=== PATIENT | female | born 1960 | race African-American/Black ===

== ENCOUNTER 2018-08-01 09:10 | Emergency (ER) | payer OTHER ==
[2018-08-01 09:22] VITALS: TEMP 98.9; BMI 43.2
--- NOTE | 2018-08-01 10:23 | PDOC ---
History of Present Illness - General Chief Complaint: Blood Pressure Problem Stated Complaint: HIGH BLOOD PRESSURE Time Seen by Provider: 08/01/18 10:11 History Source: Patient Exam Limitations: No Limitations - History of Present Illness Initial Comments: CHIEF COMPLAINT: 58 y/o afebrile female here for a BP check. HISTORY OF PRESENT ILLNESS: The patient states yesterday, while waiting for a pain medicine injection, a person in the waiting room seized and collapsed on the floor. She was taken in after that and her blood pressure was 190 over "something". She states she was very worked up and has never had high blood pressure in the past. She was told to f/u in an ER today for a repeat BP check. She denies headache, changes in vision and all other symptoms. Vital signs on arrival are notable for BP of 157/70. REVIEW OF SYSTEMS: GENERAL/CONSTITUTIONAL: No fever/chills. No weakness. No weight change. HEAD, EYES, EARS, NOSE AND THROAT: No change in vision. No ear pain or discharge. No sore throat. CARDIOVASCULAR: No chest pain or shortness of breath. RESPIRATORY: No cough, wheezing, or hemoptysis. GASTROINTESTINAL: No nausea, vomiting, diarrhea. GENITOURINARY: No dysuria, frequency, or change in urination. MUSCULOSKELETAL: No joint or muscle swelling or pain. No neck or back pain. SKIN: No rash or easy bruising. NEUROLOGIC: No headache, vertigo, loss of consciousness, or loss of sensation. PHYSICAL EXAM: GENERAL: The patient is awake, alert, and fully oriented, in no acute distress. She is well appearing and ambulatory. HEAD: Normal with no signs of trauma. ENT: Pupils equal, round and reactive to light, extraocular movements intact, sclera anicteric, conjunctiva clear.. NEUROLOGICAL: Normal speech, normal gait. CN II-XII grossly intact. PSYCH: Normal mood, normal affect. SKIN: Warm, dry, normal turgor, no rashes or lesions noted. Past History - Past Medical History Allergies/Adverse Reactions: Allergies Allergy/AdvReac Type Severity Reaction Status Date / Time No Known Allergies Allergy Verified 08/01/18 09:22 Home Medications: Ambulatory Orders NK [No Known Home Medication] 08/01/18 Cancer: Yes (STAGE 3 BREAST CANCER) COPD: No Other medical history: CHRNIC LOWER BACK PAIN - Suicide/Smoking/Psychosocial Hx Smoking Status: No Smoking History: Never smoked Number of Cigarettes Smoked Daily: 0 Hx Alcohol Use: No *Physical Exam - Vital Signs Last Vital Signs Temp Pulse Resp BP Pulse Ox 98.9 F 72 18 157/70 88 L 08/01/18 09:15 08/01/18 09:15 08/01/18 09:15 08/01/18 09:15 08/01/18 09:15 Medical Decision Making - Medical Decision Making A/P: 58 y/o female here for BP check. In triage it was 157/70. In the patient room it's 122/69. Patient has no complaints. Reassured her. Suggested she f/u with her PCP this week and return to the ER if she develops and concerning symptoms such as headache or blurry vision. The patient verbalizes understanding of all instructions, has no further questions and is awaiting discharge. *DC/Admit/Observation/Transfer Diagnosis at time of Disposition: Blood pressure check - Discharge Dispostion Disposition: HOME Condition at time of disposition: Good - Referrals Referrals: Negar Cuevas [Primary Care Provider] - 3 days - Patient Instructions Additional Instructions: Discharge Instructions: -Your blood pressure in the ER was 122/69. -Please follow up with your doctor next week -Return to the ER with any worsening or concerning symptoms - Post Discharge Activity
[2018-08-01 10:24] VITALS: BP 122/69; PULSE 68
== END 2018-08-01 10:26 | disposition home or self-care (01) ==
LOC: JERFT 09:10
DX: Z01.30 Encounter for examination of blood pressure without abnormal findings (principal); Z85.3 Personal history of malignant neoplasm of breast; M54.5 Low back pain; G89.29 Other chronic pain
CPT/HCPCS: 99281-25

== ENCOUNTER 2019-09-11 02:36 | Emergency (ER) | payer OTHER ==
[2019-09-11 02:48] VITALS: BP 134/79; PULSE 83; TEMP 98.3; BMI 42.3
--- NOTE | 2019-09-11 03:06 | PDOC ---
History of Present Illness - General Chief Complaint: Cold Symptoms Stated Complaint: SORE THROAT Time Seen by Provider: 09/11/19 02:38 - History of Present Illness Initial Comments: 09/11/19 03:17 This 59-year-old woman with a history of breast cancer (in remission) and s/p gastric sleeve resection (2018) presents with a 2-day history of sore throat, nonproductive cough, bilateral ear discomfort and subjective fever. Patient was visiting family in [place] until 2 days ago; her 6-year-old nephew there was currently being treated for strep pharyngitis. Patient returned home yesterday by airplane. Patient does not have history of strep as an adult. No history of asthma or other chronic respiratory illness. No nausea/vomiting/ diarrhea currently. On no daily medications No known allergies Non-smoker; denies daily alcohol/other recreational drugs Past History - Past Medical History Allergies/Adverse Reactions: Allergies Allergy/AdvReac Type Severity Reaction Status Date / Time No Known Allergies Allergy Verified 08/01/18 09:22 Home Medications: Ambulatory Orders Azithromycin 250 mg PO DAILY #4 tablet 09/11/19 Cancer: Yes (STAGE 3 BREAST CANCER) COPD: No - Psycho Social/Smoking Cessation Hx Smoking Status: No Smoking History: Never smoked Number of Cigarettes Smoked Daily: 0 Hx Alcohol Use: No Review of Systems - Review of Systems Able to Perform ROS?: Yes Comments:: 12 point review of systems is negative except for what is noted in the history of present illness *Physical Exam - Vital Signs Last Vital Signs Temp Pulse Resp BP Pulse Ox 98.3 F 83 16 134/79 98 09/11/19 02:46 09/11/19 02:46 09/11/19 02:46 09/11/19 02:46 09/11/19 02:46 - Physical Exam GENERAL: Adult female, alert and oriented x3, mild distress secondary to throat pain HEAD: Normal with no signs of trauma. EYES: PERRLA, EOMI, sclera anicteric, conjunctiva clear. ENT: nares patent, oropharynx moderately erythematous with 1+ tonsillar edema bilaterally; no exudates. Moist mucous membranes. Retracted TM bilaterally NECK: Normal range of motion, supple without JVD, or masses. 1+, tender anterior cervical lymphadenopathy bilaterally; no stridor LUNGS: Breath sounds equal, clear to auscultation bilaterally. No wheezes, and no crackles. HEART:Regular rate and rhythm, normal S1 and S2 without murmur, rub or gallop. ABDOMEN:.normal bowel sounds No guarding,tenderness or rebound.No masses No distention. EXTREMITIES: Normal range of motion, no edema. No clubbing or cyanosis. No erythema, or tenderness. NEUROLOGICAL: Cranial nerves II through XII grossly intact. Normal speech. No focal neurological deficits. SKIN: Warm, Dry, normal turgor, no rashes or lesions noted. Medical Decision Making - Medical Decision Making This 59-year-old woman with a history of breast cancer and gastric sleeve resection presents with few day history of sore throat/ear discomfort/ subjective fever/nonproductive cough. She recently traveled back from [place] where she had been visiting family ; her 6-year-old nephew in that household had strep pharyngitis. Exam notable for erythema and tonsillar edema without exudates or masses; she has anterior cervical lymphadenopathy bilaterally. She has no fever on presentation but had taken acetaminophen earlier in the night. Throat culture will be sent but patient will be started empirically on azithromycin with first dose of 500 mg given here in the emergency room. Remainder of the Z-Ron course of 250 mg daily for 4 days will be sent to her pharmacy. Patient is complaining of persistent throat and ear pain despite taking acetaminophen prior to coming to the ER. Patient states that she has taken ibuprofen since her gastric sleeve resection last year and had not been advised against taking NSAIDs by her bariatric surgeon. She has no history of peptic ulcer disease. Patient given ibuprofen 600 mg by mouth now. She has been cautioned to take NSAIDs with food at all times otherwise. Patient also advised to rest, drink plenty of fluids, use vaporizer in her room ; she should return if she has more severe pain, difficulty swallowing or high fever. She will be called if the throat culture is positive; in any case, she should follow-up with her doctor within the next 5 days. Discharge - Discharge Information Problems reviewed: Yes Clinical Impression/Diagnosis: Acute pharyngitis Qualifiers: Pharyngitis/tonsillitis etiology: unspecified etiology Qualified Code(s): J02.9 - Acute pharyngitis, unspecified Condition: Stable Disposition: HOME - Additional Discharge Information Prescriptions: Azithromycin 250 mg PO DAILY #4 tablet - Follow up/Referral Referrals: Negar Cuevas [Primary Care Provider] - - Patient Discharge Instructions Patient Printed Discharge Instructions: DI for Pharyngitis/Tonsillopharyngitis -- Adult Additional Instructions: Rest; drink plenty of fluids Tylenol/Motrin/Aleve as needed for pain/fever Take Motrin or Aleve with food Azithromycin 250 mg once a day for 4 days; next dose Friday evening Vaporizer in room at night Honey/lemon/tea as discussed to soothe throat pain/cough as discussed Return to ER if you have persistent high fever/difficulty swallowing/severe cough Follow-up with your doctor within the next 5 days - Post Discharge Activity
[2019-09-11] MEDS ORDERED: AZITHROMYCIN 250 MG TABLET PO ONE (03:07)
[2019-09-11] MEDS ORDERED: IBUPROFEN 600 MG TABLET (FP) PO ONE ×2 (03:07→03:09)
[2019-09-11] MEDS ORDERED: AZITHROMYCIN 500 MG TABLET ONE (03:09)
== END 2019-09-11 03:15 | disposition home or self-care (01) ==
LOC: FER 02:36
DX: J02.9 Acute pharyngitis, unspecified (principal); Z98.84 Bariatric surgery status; Z85.3 Personal history of malignant neoplasm of breast
CPT/HCPCS: 87070; 99282-25

== ENCOUNTER 2021-06-10 03:46 | Emergency (ER) | payer OTHER ==
[2021-06-10 03:53] VITALS: BP 134/80; PULSE 69; TEMP 98.8; BMI 42.5
[2021-06-10] MEDS ORDERED: CEPHALEXIN MONOHYDRATE 500 MG CAPSULE (UD) PO ONE (04:18)
[2021-06-10] MEDS ORDERED: CEPHALEXIN MONOHYDRATE 500 MG CAPSULE (UD) ONE (04:22)
== END 2021-06-10 04:29 | disposition home or self-care (01) ==
LOC: FER 03:46
DX: M79.602 Pain in left arm (principal)
CPT/HCPCS: 99283-25

== ENCOUNTER 2022-08-09 18:10 | Emergency (ER) | payer OTHER ==
[2022-08-09] MEDS ORDERED: ACETAMINOPHEN 325 MG TABLET (FP) PO ONE (18:29)
[2022-08-09] MEDS ORDERED: ALBUTEROL SO4 HFA INHALER IH ONE ×2 (18:33→19:16)
[2022-08-09 18:41] VITALS: BP 132/68; PULSE 87; RESP 20; TEMP 99.4; BMI 39.1
[2022-08-09] MEDS ORDERED: ACETAMINOPHEN 325 MG TABLET (FP) ONE (19:16)
[2022-08-09] MEDS ORDERED: KETOROLAC TROMETHAMINE 60 MG/2 ML VIAL IM ONE (20:15)
[2022-08-09] MEDS ORDERED: KETOROLAC TROMETHAMINE 30 MG/1 ML VIAL ONE (20:34)
== END 2022-08-09 20:55 | disposition home or self-care (01) ==
LOC: FER 18:10 → SUPCPDRO 18:10 → FER 20:55
PROC: 3E023GC Introduction of Other Therapeutic Substance into Muscle, Percutaneous Approach (ICD-10-PCS; principal; 2022-08-09)
PROC: 3E0F7GC Introduction of Other Therapeutic Substance into Respiratory Tract, Via Natural or Artificial Opening (ICD-10-PCS; 2022-08-09)
DX: J40 Bronchitis, not specified as acute or chronic (principal); B34.9 Viral infection, unspecified
CPT/HCPCS: 0241U-QW; 71046-TC-FY; 93005; 99285-25

== ENCOUNTER 2024-10-29 05:37 | Emergency (ER) | payer OTHER ==
[2024-10-29 05:44] VITALS: TEMP 98.4; BMI 43.0
[2024-10-29] MEDS ORDERED: BENZONATATE 200 MG CAPSULE PO ONE (07:28)
[2024-10-29] MEDS ORDERED: IBUPROFEN 600 MG TABLET (FP) PO ONE (07:28)
[2024-10-29] MEDS: BENZONATATE 200 MG CAPSULE PO ONE (07:34)
[2024-10-29] MEDS: IBUPROFEN 600 MG TABLET (FP) PO ONE (07:34)
[2024-10-29 09:41] VITALS: BP 130/72; PULSE 66; RESP 18
== END 2024-10-29 09:42 | disposition home or self-care (01) ==
LOC: JER 05:37
DX: U07.1 COVID-19 (principal); R05.9 Cough, unspecified; R09.81 Nasal congestion; R53.81 Other malaise; J34.89 Other specified disorders of nose and nasal sinuses
CPT/HCPCS: 0241U-QW; 93005; 93010; 99284-25